=== PATIENT | male | born 1950 | race Caucasian/White ===

== ENCOUNTER 2016-06-13 17:38 | Emergency (ER) | payer OTHER ==
[2016-06-13 17:53] VITALS: BP 120/82; PULSE 67; RESP 16; TEMP 97.7; O2SAT 98
[2016-06-13] MEDS ORDERED: PROPARACAINE 0.5% 15 ML OPHT DROP OP ONE (18:06)
[2016-06-13] MEDS ORDERED: FLUORESCEIN SODIUM 1 MG STRIP OP ONE (18:06)
--- NOTE | 2016-06-13 18:09 | EDPHY ---
H & P Smoking Status: Never smoked Time Seen by Provider: 06/13/16 17:59 HPI/ROS: CHIEF COMPLAINT: " I just want my eye checked out" HISTORY OF PRESENT ILLNESS: 66-year-old male with up-to-date tetanus arrives via private vehicle. States that he was using a saw to cut trim when a piece of wood flew off of the saw impacting his bridge of nose and then the left lateral orbital region. Did not directly impact his globe. [place] that he had transient blurry vision which is now resolved. He is in the ER requesting of recheck his eye. No diplopia. No foreign body sensation. No pain with extraocular movements. No loss of consciousness. No epistaxis. No flashers. No floaters. PHYSICAL EXAM (Prior to examination, patient consented to physical exam, hands were washed and my usual and customary physical exam procedures followed) 1) GENERAL: Well-developed, well-nourished, alert and oriented. Appears to be in no acute distress. 2) HEAD: Normocephalic 3) ENT: There is an abrasion to the bridge of the nose. There is no septal hematoma. No dried blood or epistaxis. No rhinorrhea. Bilateral ears are clear with no otorrhea no hemotympanum. Oropharynx is clear. He is tender to palpation left lateral orbital region. Extraocular movements are intact do not elicit abnormal gaze or diplopia. No crepitus. No proptosis. No periorbital erythema or induration OCULAR EXAM: Visual Acuity: noted from Nurse's notes. Pupils:equal round and reactive to light EOMI Lids: no edema or swelling, upper and lower lids were everted and no foreign bodies were visualized, no areas of increased fluorescein uptake. Skin: no proptosis, no periorbital erythema or swelling, no vesicles, no pain with extraocular movements. Conjunctivae: not injected, no discharge, negative Linnette test. Cornea: exam with fluorescein shows an area of increased uptake at the 2 o' clock position consistent with corneal abrasion Anterior chamber:normal, no hyphema or hypopyon Funduscopic examination grossly unremarkable 4) LUNGS: Breathing comfortably. 5) SKIN: abrasion bridge of nose ([place] Candice) Constitutional: Initial Vital Signs Temperature (C) 36.5 C 06/13/16 17:50 Heart Rate 67 06/13/16 17:50 Respiratory Rate 16 06/13/16 17:50 Blood Pressure 120/82 H 06/13/16 17:50 O2 Sat (%) 98 06/13/16 17:50 O2 Delivery Mode Room Air Allergies/Adverse Reactions: ketorolac tromethamine [From Toradol] Allergy (Verified 02/16/16 11:40) Sulfa (Sulfonamide Antibiotics) Allergy (Verified 02/16/16 11:40) Home Medications: Medication Instructions Recorded Oxycodone HCl/Acetaminophen 1 each PO Q6 PRN #15 tablet 06/13/16 [Oxycodone-Acetaminophen 10-325] oxyCODONE CR 06/13/16 MDM/Departure - MDM Medications Given: Discontinued Medications Fluorescein Sodium (Uhvpo-D-Itgxx) 1 mg OP EDNOW ONE Stop: 06/13/16 18:07 Last Admin: 06/13/16 18:12 Dose: 1 mg Ofloxacin (Ocuflox 0.3% Opht Drops Prepack) 1 btl TAKEHOME EDNOW ONE Stop: 06/13/16 18:55 Last Admin: 06/13/16 19:11 Dose: 1 btl Oxycodone/Acetaminophen (Percocet 5/325mg Prepack#4) 1 btl TAKEHOME EDNOW ONE Stop: 06/13/16 18:55 Last Admin: 06/13/16 19:12 Dose: 1 btl Proparacaine HCl (Alcaine 0.5%) 1 drops OP EDNOW ONE Stop: 06/13/16 18:07 Last Admin: 06/13/16 18:12 Dose: 1 drop ED Course/Re-evaluation: Patient be treated for corneal abrasion with antibiotic drops and follow up with Ophthalmology on Wednesday, today is Wednesday. he is noted to have a mild lateral periorbital bone tenderness where the piece of wood impacted him. doubt orbital fracture. I do not think that CT imaging currently indicated. ([place]nee Coronel) I did not see this patient while he was in the emergency department. However his care was discussed with the PA while the patient was in the department. I agree with treatment plan and management (Abimael Cary) - Depart Disposition: Home, Routine, Self-Care Clinical Impression: Abrasion, nose w/o infection Corneal abrasion, left Qualifiers: Encounter type: initial encounter Qualified Code(s): S05.02XA - Injury of conjunctiva and corneal abrasion without foreign body, left eye, initial encounter Condition: Good Instructions: Oxycodone/Acetaminophen (By mouth), Ofloxacin (Into the eye), Corneal Abrasion (ED), Abrasion (ED) Additional Instructions: Return to the ER if you develop new or worsening symptoms Prescriptions: Oxycodone HCl/Acetaminophen [Oxycodone-Acetaminophen 10-325] 1 each PO Q6 PRN # 15 tablet PRN Reason: Pain Referrals: Eliseo Solomon MD [Medical Doctor] - 06/15/16 (Dr. Eliseo Solomon is an eye doctor)
[2016-06-13] MEDS ORDERED: OFLOXACIN 0.3% SOLN PREPACK OPHT.BTL TAKEHOME ONE (18:54)
[2016-06-13] MEDS ORDERED: OXYCODONE/APAP 5/325MG PREPACK#4 BTL TAKEHOME ONE (18:54)
== END 2016-06-13 19:27 | disposition home or self-care (01) ==
DX: S05.02XA Injury of conjunctiva and corneal abrasion without foreign body, left eye, initial encounter (principal); W22.8XXA Striking against or struck by other objects, initial encounter; Y99.8 Other external cause status; Y93.89 Activity, other specified

== ENCOUNTER 2016-08-17 10:54 | Emergency (ER) | payer OTHER ==
[2016-08-17 11:02] VITALS: RESP 16
[2016-08-17] MEDS ORDERED: oxyCODONE IR 5 MG TAB PO ONE (11:54)
--- NOTE | 2016-08-17 12:19 | EDPHY ---
H & P Time Seen by Provider: 08/17/16 11:06 HPI/ROS: CHIEF COMPLAINT: right hand injury HISTORY OF PRESENT ILLNESS: 66-year-old male with prior history of right hand surgery performed 2012 at [facility] complaining of acute right hand injury when he sustained a mechanical fall this morning and impacted the dorsal ulnar aspect against a corner. Reproducible pain with palpation range of motion. PHYSICAL EXAM (Prior to examination, patient consented to physical exam, hands were washed and my usual and customary physical exam procedures followed) 1) GENERAL: Well-developed, well-nourished, alert and oriented. Appears to be in no acute distress. 2) HEAD: Normocephalic 3) HEENT: Pupils equal, round, reactive to light bilaterally. 4) LUNGS: Breathing comfortably. 5) MUSCULOSKELETAL: Ecchymosis to the dorsal ulnar aspect of the right hand with associated tenderness. Soft compartments. Normal coloration. 6) SKIN: ecchymotic discoloration with no laceration or abrasion 7) VASCULAR: pulses and cap refill present are brisk 8) NEUROLOGIC: Radial, ulnar, median nerve function intact with no deficits appreciated on exam DIFFERENTIAL DIAGNOSIS: in no particular order including but not limited to fracture, sprain, compartment syndrome Smoking Status: Never smoked Constitutional: Initial Vital Signs Temperature (C) 36.7 C 08/17/16 10:59 Heart Rate 77 08/17/16 10:59 Respiratory Rate 16 08/17/16 10:59 Blood Pressure 118/86 H 08/17/16 10:59 O2 Sat (%) 95 08/17/16 10:59 O2 Delivery Mode Room Air Allergies/Adverse Reactions: ketorolac tromethamine [From Toradol] Allergy (Verified 08/17/16 10:56) Sulfa (Sulfonamide Antibiotics) Allergy (Verified 08/17/16 10:56) Home Medications: Medication Instructions Recorded Oxycodone HCl/Acetaminophen 1 each PO Q6 PRN #15 tablet 06/13/16 [Oxycodone-Acetaminophen 10-325] oxyCODONE CR 06/13/16 Oxycodone HCl [Oxyir] 5 mg PO Q6 PRN #10 capsule 08/17/16 MDM/Departure - MDM Imaging Results: Imaging Impressions Hand X-Ray 08/17/16 11:11 Impression: 1. No acute osseous findings. 2. Curvilinear foreign object in the soft tissues of the distal thumb with an equivocal foreign object in the distal index finger seen best on the lateral view. 3. Previous carpal resection with scattered erosions and degenerative change. Images reviewed by myself Medications Given: Discontinued Medications Oxycodone HCl (Oxycodone Ir) 10 mg PO EDNOW ONE Stop: 08/17/16 11:55 Last Admin: 08/17/16 11:58 Dose: 10 mg ED Course/Re-evaluation: Patient declines splint noting that he has several splints at home. Recommend he use this and provided my usual customary orthopedic precautions instructions and recommended follow up with his hand surgeon at [facility] this week. Given copies of his x-rays. - Depart Disposition: Home, Routine, Self-Care Clinical Impression: Injury of right hand Qualifiers: Encounter type: initial encounter Qualified Code(s): S69.91XA - Unspecified injury of right wrist, hand and finger(s), initial encounter Condition: Good Instructions: Hand Sprain (ED) Additional Instructions: Return to the ER immediately if you experience discoloration, have worsening pain, numbness, tingling, or any other symptoms that concern you. If you received x-rays in the emergency department today, be advised, that ligamentous , tendon, muscular, and other non-bony injury cannot be fully ruled out. Try to keep your affected extremity elevated above the level of your chest, and keep cold packs on the affected area, for the next 48 hours. Prescriptions: Oxycodone HCl [Oxyir] 5 mg PO Q6 PRN #10 capsule PRN Reason: Pain, Severe Able To Take Po Referrals: Follow-up, with your [facility] hand surgeon this week [Other] - As per Instructions
[2016-08-17 12:39] VITALS: BP 120/72; PULSE 98; TEMP 97.7; O2SAT 94
== END 2016-08-17 12:39 | disposition home or self-care (01) ==
DX: S69.91XA Unspecified injury of right wrist, hand and finger(s), initial encounter (principal); W18.39XA Other fall on same level, initial encounter

== ENCOUNTER 2016-09-11 13:55 | Emergency (ER) | payer OTHER ==
[2016-09-11] MEDS ORDERED: CEPHALEXIN 500 MG CAP PO ONE (14:14)
--- NOTE | 2016-09-11 14:23 | EDPHY ---
H & P Time Seen by Provider: 09/11/16 14:05 HPI/ROS: CHIEF COMPLAINT: Injury to the tip of the left 5th digit HISTORY OF PRESENT ILLNESS: 66-year-old male with up-to-date tetanus sustained accidental injury from a saw to the tip of his left 5th digit. This was accidental. Occurred shortly prior to arrival. Full sensation. No flexor or extensor deficits. PHYSICAL EXAM (Prior to examination, patient consented to physical exam, hands were washed and my usual and customary physical exam procedures followed) 1) GENERAL: Well-developed, well-nourished, alert and oriented. Appears to be in no acute distress. 2) HEAD: Normocephalic 3) HEENT: sclera anicteric 4) LUNGS: Breathing comfortably. 5) SKIN: left 5th digit distal phalanx tissue avulsion involving the nail bed. There is no osseous fragment visualized or palpated 6) MUSCULOSKELETAL: flexor extensor function intact at the MCP PIP DIP intact 7) NEUROLOGIC: Full sensation Smoking Status: Never smoked Constitutional: Initial Vital Signs Temperature (C) 36.9 C 09/11/16 14:00 Heart Rate 70 09/11/16 14:00 Respiratory Rate 14 09/11/16 14:00 Blood Pressure 108/66 09/11/16 14:00 O2 Sat (%) 96 09/11/16 14:00 O2 Delivery Mode Room Air Allergies/Adverse Reactions: ketorolac tromethamine [From Toradol] Allergy (Verified 08/17/16 10:56) Sulfa (Sulfonamide Antibiotics) Allergy (Verified 08/17/16 10:56) Home Medications: Medication Instructions Recorded Oxycodone HCl/Acetaminophen 1 each PO Q6 PRN #15 tablet 06/13/16 [Oxycodone-Acetaminophen 10-325] oxyCODONE CR 06/13/16 Oxycodone HCl [Oxyir] 5 mg PO Q6 PRN #10 capsule 08/17/16 Cephalexin [Keflex] 500 mg PO QID 5 Days 09/11/16 MDM/Departure - MDM Imaging Results: Imaging Impressions Finger X-Ray 09/11/16 14:14 Impression: No fracture or foreign body. Images reviewed by myself Procedures: Procedure: Digital nerve block Indications: Anesthesia prior to wound cleaning of further wound evaluation 0.5% bupivacaine without epinephrine was instilled as a digital nerve block using my usual and customary technique. Patient tolerated procedure well. Medications Given: Discontinued Medications Cephalexin HCl (Keflex) 500 mg PO EDNOW ONE PRN Reason: Protocol Stop: 09/11/16 14:15 Last Admin: 09/11/16 15:10 Dose: 500 mg Oxycodone/Acetaminophen (Percocet 5/325) 1 tab PO EDNOW ONE Stop: 09/11/16 14:47 Last Admin: 09/11/16 15:10 Dose: 1 tab ED Course/Re-evaluation: Patient has been re-evaluated with serial examinations. Doubt traumatic arthrotomy of the DIP joint . Wound has been irrigated . Surgicel dressing placed. Started on prophylactic antibiotics. Recommend close follow-up with [facility] physician. Usual and customary wound precautions and instructions provided. He feels comfortable being discharged. - Depart Disposition: Home, Routine, Self-Care Clinical Impression: Avulsion of skin of finger Qualifiers: Encounter type: initial encounter Qualified Code(s): S61.209A - Unspecified open wound of unspecified finger without damage to nail, initial encounter Condition: Good Instructions: Skin Avulsion (ED) Additional Instructions: Return to the ER if you develop redness, swelling, discharge, warmth to the wound, red streaks going up your arm , or any other symptoms that concern you. Prescriptions: Cephalexin [Keflex] 500 mg PO QID 5 Days Referrals: [facility] [Outside] - 09/15/16 (Follow-up with [facility] on September 15)
[2016-09-11] MEDS ORDERED: OXYCODONE/APAP 5/325 TAB PO ONE (14:46)
[2016-09-11 15:59] VITALS: BP 103/98; PULSE 60; RESP 18; TEMP 98.6; O2SAT 97
== END 2016-09-11 15:58 | disposition home or self-care (01) ==
PROC: 3E0T3CZ (ICD-10-PCS; principal; 2016-09-11)
DX: S61.207A Unspecified open wound of left little finger without damage to nail, initial encounter (principal); W27.0XXA Contact with workbench tool, initial encounter

== ENCOUNTER 2016-09-24 18:22 | Emergency (ER) | payer OTHER ==
[2016-09-24 18:32] VITALS: PULSE 71; O2SAT 97
[2016-09-24] MEDS ORDERED: FLUORESCEIN SODIUM 1 MG STRIP OP ONE (19:47)
--- NOTE | 2016-09-24 19:48 | EDPHY ---
H & P Stated Complaint: r eye irritation HPI/ROS: Chief complaint: Possible right eye infection History of present illness: This is a 66-year-old male who presents to the emergency room for a possible right eye infection. Patient reports the onset of symptoms 2 days ago. He reports he works as a [employer] and is not sure if chemicals or debris might have got into his eyes 2 days ago and triggered his symptoms. He reports eye irritation. There is redness to the eye. He denies actual pain. He denies changes in his vision. No headache. No history of contact use, eye glass use or eye surgery. - Personal History Current Tetanus/Diphtheria Vaccine: Yes - Medical/Surgical History Hx Asthma: No Hx Chronic Respiratory Disease: No Hx Diabetes: No Hx Cardiac Disease: No Hx Renal Disease: No Hx Cirrhosis: No Hx Alcoholism: No Hx HIV/AIDS: No Hx Splenectomy or Spleen Trauma: No Other PMH: PSH- ORTHO (HAND)/chronic pain - Social History Smoking Status: Never smoked - Physical Exam Exam: General: Alert, nontoxic Eyes: No discharge from the eyes. Right conjunctiva is mildly injected. There is no subconjunctival hemorrhage. No hyphema. No hypopyon. PERRLA. EOM intact. Red reflex present bilaterally. Funduscopic exam grossly unremarkable. Left eye is unremarkable. Retraction of the right lower eyelid does reveal what appears to be a hordeolum. Skin: Periorbital tissue unremarkable Constitutional: Initial Vital Signs Temperature (C) 36.6 C 09/24/16 18:29 Heart Rate 71 09/24/16 18:29 Respiratory Rate 18 09/24/16 18:29 Blood Pressure 106/75 09/24/16 18:29 O2 Sat (%) 97 09/24/16 18:29 O2 Delivery Mode Room Air Allergies/Adverse Reactions: ketorolac tromethamine [From Toradol] Allergy (Verified 09/24/16 18:28) Sulfa (Sulfonamide Antibiotics) Allergy (Verified 09/24/16 18:28) Home Medications: Medication Instructions Recorded Oxycodone HCl/Acetaminophen 1 each PO Q6 PRN #15 tablet 06/13/16 [Oxycodone-Acetaminophen 10-325] Oxycodone HCl [Oxyir] 5 mg PO Q6 PRN #10 capsule 08/17/16 Moxifloxacin HCl [Vigamox] 1 drops OP TID 7 Days 09/24/16 Medical Decision Making Procedures: Visual acuities performed, right eye 20/20, left eye 20/25, both eyes 20/20 PH of the eye is tested and within normal limits between 7 and 8 on nitrazine paper testing Slit-lamp examination is performed after staining with flouriscein using cobalt blue and white light. No foreign bodies. No filling defects. ED Course/Re-evaluation: Patient seen under the supervision of my secondary supervising physician Dr. Amrik Millard. Patient presents to the emergency department for evaluation of right eye discomfort. I believe history and physical exam is consistent with a hordeolum. Patient will be started on eye antibiotics. Symptomatic care including warm compresses are discussed at length. He is asked to follow up with ophthalmology for recheck through [place]. Return precautions are given. Patient voiced understanding and agreement with plan. Differential Diagnosis: Included but not limited to conjunctivitis, corneal abrasion or ulceration, foreign body, hordeolum, chills easy on, blepharitis Departure - Departure Disposition: Home, Routine, Self-Care Clinical Impression: Hordeolum Qualifiers: Hordeolum type: internum Laterality: right Eyelid: lower Qualified Code(s): H00.022 - Hordeolum internum right lower eyelid Condition: Good Instructions: Timothy (ED) Additional Instructions: Follow-up with an embroidery worker for recheck Apply warm compresses to the eye multiple times daily as discussed If symptoms worsen or new symptoms develop return to the emergency room for recheck Referrals: BALAJI FRY [Primary Care Provider] - As per Instructions Johnny Graf MD [Medical Doctor] - As per Instructions Prescriptions: Moxifloxacin HCl [Vigamox] 1 drops OP TID 7 Days
[2016-09-24 20:13] VITALS: BP 108/68; RESP 16; TEMP 97.5
== END 2016-09-24 20:12 | disposition home or self-care (01) ==
DX: H00.022 Hordeolum internum right lower eyelid (principal)

== ENCOUNTER 2016-10-16 07:58 | Emergency (ER) | payer OTHER ==
[2016-10-16 08:03] VITALS: RESP 16; TEMP 98.2
--- NOTE | 2016-10-16 08:09 | EDPHY ---
H & P Stated Complaint: Slipped,fell; Lac/abrasions to L forehead;no LOC HPI/ROS: CHIEF COMPLAINT: Fell and hit head at work. HISTORY OF PRESENT ILLNESS: This patient is a 66 year old male arriving by private vehicle after striking his head in an accidental fall at work one hour ago, around 7:30. He states he was prying a heavy slab of concrete with a long pry-bar and flipped over it, and "used my head as a landing gear". He denies any loss of consciousness. He sustained several abrasions and a laceration to the right side of his forehead, and states he was able to control the bleeding quickly by applying compression. He endorses a "major" headache, localized to the right side. He reports neck pain as well, localized to his right trapezius area. He denies visual changes, numbness, or weakness. He states his tetanus shot is up to date. He takes daily pain medication related to multiple orthopedic surgeries, and states he has taken 20mg oxycodone today. He denies nausea, vomiting, hearing loss, confusion , or other associated symptoms. REVIEW OF SYSTEMS: A ten point review of systems was performed and is negative with the exception of the items mentioned in the HPI. - Personal History Current Tetanus Diphtheria and Acellular Pertussis (TDAP): Yes - Medical/Surgical History PMH: Multiple orthopedic surgeries including laminectomy, bilateral great toe fusions , osteotomies. Head and neck cancer 1985, resolved. 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 , lives in [place]. - Physical Exam Exam: General Appearance: Alert. Vital signs reviewed. Head: 1.25cm irregular laceration to upper right forehead. Scattered abrasion to mid right forehead with underlying swelling. No facial bone deformity or crepitus. Eyes: Pupils equal and round, no conjunctival injection, no discharge. Anicteric. ENT, Mouth: Mucous membranes are moist, no oropharyngeal erythema or edema. Dentition intact. No trismus. Neck: No midline tenderness. Tenderness palpation over the trapezius muscles bilaterally, no muscle spasm. Respiratory: Lungs are clear to auscultation; no wheezes, rales, or rhonchi. Cardiovascular: Bradycardic. No murmur, rub, or gallop. Gastrointestinal: Abdomen is soft and nontender, no masses or organomegaly, bowel sounds normal. Skin: Warm and dry, no rashes on exposed skin, normal color. Back: Nontender to palpation over the thoracolumbar spine. Extremities: No lower extremity edema, no calf tenderness or swelling. Neurological: Alert and oriented. Moving all four extremities easily and equally. Cranial nerves II through XII are examined and are intact (visual acuity not tested). Strength is 5 over 5 bilaterally with testing of all major motor groups. Sensation is intact to light touch over all 4 extremities. Psychiatric: Normal affect. Constitutional: Initial Vital Signs Temperature (C) 36.8 C 10/16/16 08:00 Heart Rate 75 10/16/16 08:00 Respiratory Rate 16 10/16/16 08:00 Blood Pressure 113/83 H 10/16/16 08:00 O2 Sat (%) 96 10/16/16 08:00 O2 Delivery Mode Room Air Allergies/Adverse Reactions: Sulfa (Sulfonamide Antibiotics) Allergy (Intermediate, Verified 10/16/16 08:03) lungs feel "cottony" ketorolac tromethamine [From Toradol] Allergy (Mild, Verified 10/16/16 08:03) itch Home Medications: Medication Instructions Recorded Oxycodone HCl/Acetaminophen 1 each PO Q6 PRN #15 tablet 06/13/16 [Oxycodone-Acetaminophen 10-325] Oxycodone HCl [Oxyir] 5 mg PO Q6 PRN #10 capsule 08/17/16 clonazePAM [Klonopin (*)] 0.5 mg PO 10/16/16 Medical Decision Making Procedures: Procedure: Laceration repair. Verbal consent was obtained from the patient. The linear 1.25 laceration on the right upper forehead was anesthetized using LET. The wound was cleaned with standard ED protocol, draped and explored to its base with a gloved finger. There were no deep structures involved. The wound was repaired in single layer technique with skin glue. The wound repair was simple. The procedure was performed by myself, Dr. Saleem. ED Course/Re-evaluation: This patient is a 66 year old male presenting with multiple abrasions and a jagged 1.5cm laceration to his upper right forehead following an accidental fall at work. Physical exam reveals no further trauma. The patient is neurologically intact. Plan to clean and perform simple repair of the patient's laceration using skin glue. The patient tolerated the procedure well. Plan to discharge home in good condition. Return precautions discussed. The patient is comfortable with this plan. - Data Points Medications Given: Discontinued Medications Tetracaine/Epinephrine/Lidocaine (Let Gel Topical) 1 ea TP EDNOW ONE Stop: 10/16/16 08:31 Last Admin: 10/16/16 08:32 Dose: 1 ea Departure - Departure Disposition: Home, Routine, Self-Care Clinical Impression: Facial laceration, Facial abrasion Condition: Good Instructions: Abrasion (ED), Skin Adhesive Care (ED), Facial Laceration (ED) Additional Instructions: 1. We repaired your laceration with skin glue. Instructions regarding this repair are attached. 2. You may take Tylenol and ibuprofen as needed for pain and swelling as directed below. 3. Follow up with your [facility] physicians as needed for continuing concerns. 4. Return to the Emergency Department if you develop worsening headache, confusion, changes in your vision, nausea, vomiting, numbness or weakness, or other worsening of condition. Adult Pain Control: We recommend Acetaminophen (Tylenol) and Ibuprofen (Motrin,Advil) for pain control. When pain is severe, both drugs can be used at the same time, but at different intervals. Please note the time differences. Your dose is: Acetaminophen 650mg every 4 to 6 hours Ibuprofen 400mg every 6-8 hours with food . Note: do not take Acetaminophen with Hydrocodone (Vicodin, Lortab) or Oxycodone (Percocet). These medications also contain Acetaminophen. No more than 3000mg of Acetaminophen should be taken in 24 hours (for an adult). Referrals: [facility] [Outside] - As per Instructions Report Scribed for: Brina Saleem Report Scribed by: Jeana Carpio Date of Report: 10/16/16 Time of Report: 08:48 Physician Review and Approval Statement: 10/16/16 08:09 Portions of this note were transcribed by the manager of medical. I, Dr. Brina Saleem, personally performed the history, physical exam, and medical decision- making; and confirmed the accuracy of the information in the transcribed note.
[2016-10-16] MEDS ORDERED: LET GEL TOPICAL 1 EA SYR TP ONE ×2 (08:29→08:30)
[2016-10-16] MEDS ORDERED: SKIN ADHESIVE (DERMABOND) 1 EACH TP ONE (08:59)
[2016-10-16 09:26] VITALS: BP 120/67; PULSE 60; O2SAT 92
== END 2016-10-16 09:25 | disposition home or self-care (01) ==
PROC: 0HQ1XZZ Repair Face Skin, External Approach (ICD-10-PCS; principal; 2016-10-16)
DX: S01.81XA Laceration without foreign body of other part of head, initial encounter (principal); Z85.828 Personal history of other malignant neoplasm of skin; W01.198A Fall on same level from slipping, tripping and stumbling with subsequent striking against other object, initial encounter; Y92.69 Other specified industrial and construction area as the place of occurrence of the external cause; Y99.0 Civilian activity done for income or pay

== ENCOUNTER 2017-03-01 13:23 | Emergency (ER) | payer OTHER ==
[2017-03-01 13:41] VITALS: RESP 18; TEMP 98.8; O2SAT 94
--- NOTE | 2017-03-01 14:35 | EDPHY ---
H & P Stated Complaint: Heavy stone struck pt R medial ankle ~2wks ago Time Seen by Provider: 03/01/17 14:35 HPI/ROS: CHIEF COMPLAINT: Ongoing right ankle pain HISTORY OF PRESENT ILLNESS: The patient presents to the ED with complaints of ongoing right ankle pain. He was struck by a large stone on a job site 2 weeks ago. The patient was noted to have bruising ecchymosis which have subsided over the past week. The patient continues to have ongoing bony tenderness involving his right medial malleolus. The patient is able to weightbear with discomfort. The patient denies any additional acute complaints. REVIEW OF SYSTEMS: A comprehensive 10 point review of systems is otherwise negative aside from elements mentioned in the history of present illness. Source: Patient Exam Limitations: No limitations - Personal History Current Tetanus Diphtheria and Acellular Pertussis (TDAP): Yes - Medical/Surgical History Hx Asthma: No Hx Chronic Respiratory Disease: No Hx Diabetes: No Hx Cardiac Disease: No Hx Renal Disease: No Hx Cirrhosis: No Hx Alcoholism: No Hx HIV/AIDS: No Hx Splenectomy or Spleen Trauma: No Other PMH: ORTHO (HAND)/. chronic pain - Social History Smoking Status: Never smoked - Physical Exam Exam: General appearance: alert no distress Right ankle: There is no swelling but tenderness over the right medial malleolus. Ankle joint is stable and there is no tenderness over the Achilles tendon. The foot is nontender without swelling. Neurologic exam: The patient has normal sensation and motor function distal to the injury. Vascular exam: Normal pulses and capillary refill in the foot DIFFERENTIAL DIAGNOSIS: After history and physical exam differential diagnosis was considered for ankle injury including sprain, fracture, dislocation and soft tissue injury. Constitutional: Initial Vital Signs Temperature (C) 37.1 C 03/01/17 13:36 Heart Rate 74 03/01/17 13:36 Respiratory Rate 18 03/01/17 13:36 Blood Pressure 133/98 H 03/01/17 13:36 O2 Sat (%) 94 03/01/17 13:36 O2 Delivery Mode Room Air Allergies/Adverse Reactions: Sulfa (Sulfonamide Antibiotics) Allergy (Intermediate, Verified 03/01/17 13:35) lungs feel "cottony" ketorolac tromethamine [From Toradol] Allergy (Mild, Verified 03/01/17 13:35) itch Home Medications: Medication Instructions Recorded oxyCODONE CR [Oxycontin] 27.5 mg PO 03/01/17 Medical Decision Making - Diagnostics Imaging Results: Imaging Impressions Ankle X-Ray 03/01/17 14:58 Impression: Negative. No acute fracture. Knee X-Ray 03/01/17 15:10 Impression: 1. No acute fracture or effusion. 2. Minimal osteoarthritis and chondrocalcinosis. ED Course/Re-evaluation: The patient presents to the ED with complaints of right ankle pain and tenderness in right knee pain following a work related injury 2 weeks ago. The patient was noted to be neurologically intact. He was taken for x-rays which demonstrate no evidence of an acute fracture. The patient is advised to continue to weightbear as tolerated he should continue to use NSAIDs. The patient is given the contact number of our on-call orthopedic surgeon for any ongoing symptoms. Departure - Departure Disposition: Home, Routine, Self-Care Clinical Impression: Contusion of right leg Condition: Good Instructions: Musculoskeletal Pain (ED) Additional Instructions: 1. Your x-rays demonstrate no evidence of an acute fracture. 2. Crutches as needed for ambulation. 3. Please follow up with your primary care provider for any unimproved symptoms. Referrals: BALAJI FRY [Primary Care Provider] - As per Instructions
[2017-03-01 16:56] VITALS: BP 128/88; PULSE 80
== END 2017-03-01 16:55 | disposition home or self-care (01) ==
DX: S90.01XA Contusion of right ankle, initial encounter (principal); W22.8XXA Striking against or struck by other objects, initial encounter

== ENCOUNTER 2018-02-18 19:21 | Emergency (ER) | payer OTHER ==
[2018-02-18] MEDS ORDERED: PROPARACAINE 0.5% 15 ML OPHT DROP OP ONE (19:58)
[2018-02-18] MEDS ORDERED: TOBRAMYCIN 0.3% SOLN PREPACK OPHT.BTL TAKEHOME ONE (19:58)
[2018-02-18] MEDS ORDERED: FLUORESCEIN SODIUM 1 MG STRIP OP ONE (19:59)
[2018-02-18] MEDS ORDERED: PROPARACAINE 0.5% 15 ML OPHT DROP ONE (19:59)
[2018-02-18] MEDS ORDERED: TDAP ADULT 0.5 ML INJ (BOOSTRIX) IM ONE (20:00)
--- NOTE | 2018-02-18 20:01 | EDPHY ---
H & P Stated Complaint: Left eye injury, walked into tree branch Time Seen by Provider: 02/18/18 19:59 HPI/ROS: HPI: This is a 67-year-old male who presents with Chief Complaint: Left eye injury, walked into tree branch Location: Left eye Quality: Injury Duration: 4 hr prior to arrival Signs and Symptoms: no fever, no nausea, no vomiting, + photophobia, no noise sensitivity, no neck stiffness, no ear pain, no tinnitus, no nasal congestion, no sinus pressure, no weakness, no radiation, no aura, no discharge Timing: Acute Severity: Moderate Context: Patient wears glasses at baseline, presents with walking through the [place] his house and having a tree branch strike him in the face. He complains of foreign body sensation in the lower portion of his left eye and pain since around 4:00 p.m. Does not wear contact lenses. Tetanus status is unknown. Last eye exam was performed in August 2017. Patient flushed his eye with water several times. looked in his eye and could not find a foreign body. Modifying Factors: Flushed with water several times Comment: ROS: A comprehensive 10 system review of systems is otherwise negative aside from elements mentioned in the history of present illness. MEDICAL/SURGICAL/SOCIAL HISTORY: Medical history: chronic pain, leukemia, hand surgery, depression Surgical history: Denies Social history: Never smoked. Employed as a [employer]. Family history noncontributory. CONSTITUTIONAL: Elderly, well-appearing, white male, awake and alert, no obvious distress HEENT: Atraumatic and normocephalic, PERRL, EOMI. Nares patent; no rhinorrhea; no nasal mucosal edema. Tympanic membranes clear. Oropharynx clear, no exudate and moist pink mucosa. Airway patent. No lymphadenopathy. No meningismus. Visual Acuity: R 20/20 L 20/25 B 20/20 Pupils: equal round and reactive to light. EOMI Lids: no edema or swelling Skin: no proptosis, no periorbital erythema or swelling, no vesicles Conjunctivae: not injected, no discharge Left Cornea: exam with fluorescein shows uptake at the 3 or 4:00 position Anterior chamber: normal, no hyphema or hypopyon Neurological: Cranial nerves 2-12 grossly intact. No gross focal deficits. Source: Patient Exam Limitations: No limitations - Personal History Current Tetanus Diphtheria and Acellular Pertussis (TDAP): Unsure - Medical/Surgical History Hx Asthma: No Hx Chronic Respiratory Disease: No Hx Diabetes: No Hx Cardiac Disease: No Hx Renal Disease: No Hx Cirrhosis: No Hx Alcoholism: No Hx HIV/AIDS: No Hx Splenectomy or Spleen Trauma: No Other PMH: chronic pain, leukemia, hand surgery - Social History Smoking Status: Never smoked Constitutional: Initial Vital Signs Temperature (C) 36.6 C 02/18/18 19:25 Heart Rate 74 02/18/18 19:25 Respiratory Rate 18 02/18/18 19:25 Blood Pressure 128/74 H 02/18/18 19:25 O2 Sat (%) 96 02/18/18 19:25 O2 Delivery Mode Room Air Allergies/Adverse Reactions: Sulfa (Sulfonamide Antibiotics) Allergy (Intermediate, Verified 03/01/17 13:35) lungs feel "cottony" ketorolac tromethamine [From Toradol] Allergy (Mild, Verified 03/01/17 13:35) itch Home Medications: Medication Instructions Recorded oxyCODONE CR [Oxycontin] 27.5 mg PO 03/01/17 Citalopram 02/18/18 Medical Decision Making ED Course/Re-evaluation: Vital signs reviewed and stable upon arrival. Fluorescein uptake at the 3 or 4:00 position consistent with corneal abrasion. Tetanus booster given Given Tobramycin drops as well as Proparacaine drops with caution to only use proparacaine for 24 hr. Patient is to follow up with Ophthalmology in the next 2-3 days. This patient was seen under the supervision of my secondary supervising physician. I evaluated care for this patient independently. Discussed this patient with Dr. Millard. Differential Diagnosis: Differential diagnosis includes but is not limited to foreign body, corneal abrasion, iritis, uveitis, retinal hemorrhage, retinal detachment. Departure - Departure Disposition: Home, Routine, Self-Care Clinical Impression: Left corneal abrasion Qualifiers: Encounter type: initial encounter Qualified Code(s): S05.02XA - Injury of conjunctiva and corneal abrasion without foreign body, left eye, initial encounter Condition: Good Instructions: Corneal Abrasion (ED) Additional Instructions: Apply Tobramycin 1-2 drops into your left eye every 4 hr while awake x 5 days. Apply Proparacaine 1 drop every 6 hr while into left eye for maximum of 24 hr. Do not use longer than 1 day. Please avoid using your hands to touch your eyes. Wash your hands frequently with mild soap and water. Apply cool compresses for 15-20 minutes at a time several times per day for the next 1-2 days. Follow up with ophthalmology in 2-3 days if no improvement in symptoms. Eye Complaint: Return to the Emergency Department for any increase in eye pain, redness, swelling, discharge or any worsening of your vision. Referrals: Mike Berry MD [Medical Doctor] - As per Instructions
[2018-02-18 20:50] VITALS: BP 135/78
== END 2018-02-18 20:58 | disposition home or self-care (01) ==
DX: S05.02XA Injury of conjunctiva and corneal abrasion without foreign body, left eye, initial encounter (principal); W22.09XA Striking against other stationary object, initial encounter; Y93.01 Activity, walking, marching and hiking; Y92.821 Forest as the place of occurrence of the external cause

== ENCOUNTER 2018-02-19 09:33 | Emergency (ER) | payer OTHER ==
[2018-02-19] MEDS ORDERED: PROPARACAINE 0.5% 15 ML OPHT DROP OP ONE (10:11)
[2018-02-19] MEDS ORDERED: FLUORESCEIN SODIUM 1 MG STRIP OP ONE (10:26)
[2018-02-19] MEDS ORDERED: PROPARACAINE 0.5% 15 ML OPHT DROP ONE (10:27)
--- NOTE | 2018-02-19 10:32 | EDPHY ---
H & P Time Seen by Provider: 02/19/18 10:24 HPI/ROS: HPI Seen yesterday with corneal abrasion. Continued pain. 67-year-old male by private vehicle. He was seen yesterday evening in the emergency department at about 7:00 p.m. by physician bilingual executive assistant Tasneem Jama with complaint of left eye injury after he had walked into a tree branch by accident. Her slit-lamp examination was significant for a corneal abrasion 3 - 4:00 position. He was given a tetanus booster. He received proparacaine drops and tobramycin eyedrops in the emergency department. He was sent home with these medications. He returns to the emergency department with complaint of continued pain and irritation to that left eye. No changes in vision from yesterday. He was instructed to follow up with Ophthalmology in the next 2-3 days. ROS: Constitutional: No fever, no chills. No weakness. Eyes: No discharge. As above. Skin: No rashes. Neurological: No headache. Past medical history: Chronic pain, leukemia, hand surgery. Social history: Nonsmoker. Here by himself. No alcohol. Physical Exam: General Appearance: Alert, no distress. This patient is responding to questions appropriately and in full sentences. This patient appears well- hydrated and well-nourished. Eyes: Pupils equal and round no pallor or injection. No lid edema, erythema or injection. Left eye; Robison lamp exam with fluorescein staining; no Linnette's sign, he has a corneal abrasion from the 1 o'clock position to the approximately 6:00 position representing about 40% of the surface area of the cornea, no ulceration or other abnormality appreciated. Slit-lamp exam; no hypopyon, no hyphema, anterior chamber is deep and clear, no cell/flare. The upper and lower lids were everted with no gross evidence of foreign body. Visual acuities: Right-20/50 left-20/40 bilateral-20/40. Neurological: Motor sensory function is grossly intact. Cranial nerves are normal. Gait is normal. Skin: Warm and dry, no rashes. Extremities are symmetrical. All joints range without pain or impingement. Psychiatric: No agitation. No depression. Database: EKG: Imaging: Procedures: Emergency department course: Triage vital signs reviewed and are unremarkable. Visual acuities and slit-lamp examination performed as noted above. Based on documentation from yesterday's visit it appears that the corneal abrasion is larger than originally documented. No evidence of ulceration. Ophthalmology paged. 11:20 a.m., spoke with on-call cable installation manager Dr. Mike Berry. Case discussed with him in detail. He feels this patient is safe for discharge from the emergency department and follow-up in his office. Explained that a corneal abrasion the size will take about a week to heal. Other than tobramycin eyedrops he recommends ibuprofen and Polysporin ointment applied to the lower lid to keep the cornea moist. He will see this patient in his office on Wednesday on follow-up. 11:45 p.m., the patient was re-evaluated. My conversation and management plan as well as follow up with Dr. Mike Berry was discussed with him in detail. He feels comfortable going home at this time. All of his questions were answered. Return to emergency department precautions thoroughly reviewed. He was discharged from the emergency department in good condition. He will not be discharged with proparacaine. Differential Diagnosis: The differential diagnosis on this patient includes but is not limited to left eye corneal abrasion. Corneal ulceration, dendritic keratitis, ocular foreign body, UV keratitis, iritis/uveitis unlikely. This represents a partial list of diagnoses considered. These considerations are based on history, physical exam , past history, reassessment and diagnostic testing. Smoking Status: Never smoked Constitutional: Initial Vital Signs Temperature (C) 36.5 C 02/19/18 09:38 Heart Rate 69 02/19/18 09:38 Respiratory Rate 16 02/19/18 09:38 Blood Pressure 135/76 H 02/19/18 09:38 O2 Sat (%) 93 02/19/18 09:38 O2 Delivery Mode Room Air Allergies/Adverse Reactions: Sulfa (Sulfonamide Antibiotics) Allergy (Intermediate, Verified 02/19/18 09:37) lungs feel "cottony" ketorolac tromethamine [From Toradol] Allergy (Mild, Verified 02/19/18 09:37) itch Home Medications: Medication Instructions Recorded oxyCODONE CR [Oxycontin] 27.5 mg PO 03/01/17 Citalopram 02/18/18 Medical Decision Making - Data Points Medications Given: Discontinued Medications Proparacaine HCl (Alcaine 0.5%) 1 drops OP EDNOW ONE Stop: 02/19/18 10:12 Last Admin: 02/19/18 10:15 Dose: 2 drop Departure - Departure Disposition: Home, Routine, Self-Care Clinical Impression: Corneal abrasion, left Condition: Good Instructions: Corneal Abrasion (ED) Additional Instructions: Read and follow provided instructions. Follow-up with alex Berry of the ophthalmology service on Wednesday for re- evaluation and further management as discussed. I spoke with Dr. Mike Berry in detail about your case in the emergency department today. Call his office at 8: 30 a.m. For appointment time. You can apply with a Q-tip a small amount of Polysporin antibiotic ointment to the lower lid area. This will help to keep your cornea moist. You can do this 4-5 times daily as needed. Administer your eyedrop antibiotic medication as previously prescribed. Ibuprofen dosin mg every 6 hours with meals for the next 3 days only. Take only as needed for pain. Return to the emergency department for worsening symptoms, worsening pain, changes in vision or other serious concerns. Referrals: Mike Berry MD [Medical Doctor] - As per Instructions
[2018-02-19 11:57] VITALS: BP 130/82
== END 2018-02-19 11:56 | disposition home or self-care (01) ==
DX: S05.02XD Injury of conjunctiva and corneal abrasion without foreign body, left eye, subsequent encounter (principal); W26.8XXD Contact with other sharp object(s), not elsewhere classified, subsequent encounter; Y99.9 Unspecified external cause status

== ENCOUNTER 2018-04-06 18:46 | Emergency (ER) | payer OTHER ==
--- NOTE | 2018-04-06 19:27 | EDPHY ---
H & P Time Seen by Provider: 04/06/18 19:13 HPI/ROS: CHIEF COMPLAINT: Aspirated pill HISTORY OF PRESENT ILLNESS: The patient is a 67-year-old male who presents emergency department after accidentally aspirating 1 of his vitamin pills. The patient was taking a be suppressing vitamin went went to his long. He suddenly had a coughing fit. He states he is quite certain that went into his lungs. He noted that the pill broke apart releasing all the powder into his lungs. This caused him to have a significant coughing fit. He was able to cough up the empty plastic pill canister. He has been coughing since the event. He describes diffuse chest discomfort. He has had no fevers or chills. Mild shortness of breath. REVIEW OF SYSTEMS: 10 systems were reveiwed and are negative with the exception of the elements mentioned in the history of present illness. Past Medical/Surgical History: Includes chronic pain, leukemia, hand surgery Social history: The patient does not smoke Smoking Status: Never smoked Physical Exam: 36.6, 144/110, 70, 16, 96% on room air GENERAL: Moderate distress, alert. HEENT: Eyes normal to inspection, normal pharynx, no signs of dehydration. NECK: Normal, supple. No stridor. RESPIRATORY: Coarse breath sounds, right greater than left. No significant wheeze. CVS: Regular rate and rhythm, no rubs, murmurs, or gallops. ABDOMEN: Soft, nontender, nondistended. BACK: Normal to inspection, no CVA tenderness. SKIN: Normal color, no rash, warm, dry. No pallor. EXTREMITIES: No pedal edema, no calf tenderness, no joint swelling. NEURO/PSYCH: Alert and oriented, normal mood and affect, normal motor sensory exam. Constitutional: Initial Vital Signs Temperature (C) 36.6 C 04/06/18 18:50 Heart Rate 78 04/06/18 18:50 Respiratory Rate 16 04/06/18 18:50 Blood Pressure 144/110 H 04/06/18 18:50 O2 Sat (%) 96 04/06/18 18:50 O2 Delivery Mode Room Air Allergies/Adverse Reactions: Sulfa (Sulfonamide Antibiotics) Allergy (Intermediate, Verified 04/06/18 18:50) lungs feel "cottony" ketorolac tromethamine [From Toradol] Allergy (Mild, Verified 04/06/18 18:50) itch Home Medications: Medication Instructions Recorded Citalopram 02/18/18 B Vitamins 04/06/18 Medical Decision Making - Diagnostics Imaging Results: Imaging Impressions Chest X-Ray 04/06/18 18:58 Impression: Negative chest. ED Course/Re-evaluation: In the emergency department I discussed possible etiologies with the patient. I answered all his questions. A chest x-ray was ordered. I paged pulmonology. Chest x-ray: Please refer the dictated report. No acute disease noted. I discussed the case with Dr. Rico pulmonology. He recommended nebulized 2% lidocaine and antitussant. If prednisone given, give no more than 40mg. I discussed plan with the patient. I answered all his questions. He would prefer receiving prednisone. Patient was given nebulized lidocaine 2%, prednisone 40 mg and [place]. I rechecked the patient while here. He was stable with no new complaints. He had no worsening respiratory distress. On recheck he had no accessory muscle use. Clear breath sounds bilaterally. Differential Diagnosis: My differential includes but is not limited to pneumonitis, foreign body, pneumonia, reactive airway - Data Points Medications Given: Discontinued Medications Hydrocodone Bitart/Acetaminophen ([place] 5/325) 1 tab PO EDNOW ONE Stop: 04/06/18 19:45 Last Admin: 04/06/18 19:50 Dose: 1 tab Lidocaine HCl (Xylocaine-Mpf 2% Vial) 4 ml IH EDNOW ONE Stop: 04/06/18 19:44 Last Admin: 04/06/18 19:51 Dose: 4 ml Prednisone (Prednisone) 40 mg PO EDNOW ONE Stop: 04/06/18 19:46 Last Admin: 04/06/18 19:50 Dose: 40 mg Departure - Departure Disposition: Home, Routine, Self-Care Clinical Impression: Pneumonitis Pulmonary aspiration Qualifiers: Encounter type: initial encounter Qualified Code(s): T17.900A - Unspecified foreign body in respiratory tract, part unspecified causing asphyxiation, initial encounter Condition: Good Instructions: Pneumonitis (ED) Additional Instructions: Return with increasing shortness of breath, cough, fever or any other concerns. Referrals: Kwasi Rico MD [Medical Doctor] - 2-3 days without fail
[2018-04-06] MEDS ORDERED: LIDOCAINE 2% 5 ML SDV IH ONE (19:43)
[2018-04-06] MEDS ORDERED: HYDROCODONE/APAP 5/325 TAB PO ONE (19:44)
[2018-04-06] MEDS ORDERED: predniSONE 20 MG TAB PO ONE (19:45)
[2018-04-06 20:40] VITALS: BP 132/69
[2018-04-06] MEDS ORDERED: HYDROCOD/APAP 5/325 PREPACK#6 BTL TAKEHOME ONE (20:43)
== END 2018-04-06 20:38 | disposition home or self-care (01) ==
DX: T17.900A Unspecified foreign body in respiratory tract, part unspecified causing asphyxiation, initial encounter (principal); J69.8 Pneumonitis due to inhalation of other solids and liquids
CPT/HCPCS: 71046; 99283; J7512